=== PATIENT | female | born 1960 | race Two or more races ===

== ENCOUNTER 2018-02-23 19:04 | Emergency (ER) | payer OTHER ==
[~2018-02-23] VITALS: Ht 160 cm; Wt 99.0 kg
[2018-02-24] MEDS ORDERED: KETOROLAC 60MG/2ML VIAL IM ONE (00:15)
[2018-02-24 02:00] VITALS: BP 169/90
== END 2018-02-24 02:00 | disposition home or self-care (01) ==
LOC: ER 19:04
DX: M25.562 Pain in left knee (principal); W01.0XXA Fall on same level from slipping, tripping and stumbling without subsequent striking against object, initial encounter; Y93.E8 Activity, other personal hygiene; Y92.89 Other specified places as the place of occurrence of the external cause; Z88.6 Allergy status to analgesic agent; Z88.5 Allergy status to narcotic agent; Z90.710 Acquired absence of both cervix and uterus
CPT/HCPCS: 73090; 73110; 73562; 96372; 99284; J1885; Z7610

== ENCOUNTER 2019-04-16 22:43 | Emergency (ER) | payer OTHER ==
[~2019-04-16] VITALS: Ht 175.3 cm; Wt 82.0 kg
[2019-04-17] MEDS ORDERED: SODIUM CHLORIDE 0.9% 1,000 ML IV ONE
[2019-04-17 00:13] LABS: BASOPHILS % 0.6 % (0.0-2.0); EOSINOPHILS % 2.5 % (0.0-5.0); HEMATOCRIT. 31.1 % (36.0-48.0); HEMOGLOBIN. 10.1 g/dL (12.0-16.0); LYMPHOCYTES % 26.9 % (20.0-50.0); MEAN CORPUSCULAR VOLUME 80.4 fL (81.0-99.0); MONOCYTES % 6.9 % (2.0-8.0); NEUTROPHILS % 63.1 % (40.0-76.0); PLATELET 442 x1000/uL (130-400); RED BLOOD CELL COUNT 3.87 mill/uL (4.2-5.4); RED CELL DISTRIBUTION WIDTH 14.3 % (11.6-14.6)
[2019-04-17 00:23] LABS: CHLORIDE 103 mEq/L (98-107)
[2019-04-17 03:50] VITALS: BP 118/68
== END 2019-04-17 04:30 | disposition home or self-care (01) ==
LOC: ER 22:43
DX: R55 Syncope and collapse (principal); E11.65 Type 2 diabetes mellitus with hyperglycemia; D64.9 Anemia, unspecified; M79.605 Pain in left leg; M79.604 Pain in right leg; Z63.4 Disappearance and death of family member; Z96.652 Presence of left artificial knee joint; Z79.899 Other long term (current) drug therapy
CPT/HCPCS: 36415; 71045; 80053; 84484; 85025; 93005; 93970; 96360; 96361; 99284; J7030